=== PATIENT | female | born 1940 | race Caucasian/White ===

== ENCOUNTER 2021-10-18 06:53 | Day surgery (SDC) | payer OTHER ==
[~2021-10-18] VITALS: Ht 154.9 cm; Wt 97.5 kg
[2021-10-18] MEDS ORDERED: CEFAZOLIN SOD 1 GM in D5W 50 ML IV ONE (07:00)
[2021-10-18] MEDS ORDERED: SEVOFLURANE 15 MIN GAS INH ONE (08:01)
[2021-10-18] MEDS ORDERED: LIDOCAINE 1% 10 MG/ML, 20 ML MDV ONE (08:01)
[2021-10-18] MEDS ORDERED: LR 1,000 ML IV.SOLN IV ONE (08:01)
[2021-10-18] MEDS ORDERED: PROPOFOL 200MG/ 20ML VIAL (DIPRIVAN) IV ONE (08:01)
[2021-10-18] MEDS ORDERED: NS IRRIG SOLN 1000 ML IR ONE (08:01)
[2021-10-18] MEDS ORDERED: BUPIVACAINE /PF 0.25% 30 ML VIAL INJ ONE (08:01)
[2021-10-18] MEDS ORDERED: ROCURONIUM BROMIDE 10 MG/ML (ZEMURON) ONE (08:01)
[2021-10-18] MEDS ORDERED: HYDROcodone/ACETAMIN 5-325 MG TAB (NORCO/ VICODIN) PO PRN ×2 (09:30)
[2021-10-18] MEDS ORDERED: D5/0.45 NS 1,000 ML IV SCH (09:30)
[2021-10-18] MEDS ORDERED: KETOROLAC TROMETHAMINE 30 MG VIAL IVP PRN (09:45)
[2021-10-18] MEDS ORDERED: LABETALOL 100 MG/ 20ML VIAL IVP PRN (09:45)
[2021-10-18] MEDS ORDERED: HYDROmorphone 1 MG/ML INJ. CARTRIDGE IVP PRN ×2 (09:45)
[2021-10-18] MEDS ORDERED: ONDANSETRON HCL 4 MG/2 ML VIAL IVP PRN (09:45)
[2021-10-18 11:26] VITALS: BP_SYST 152
== END 2021-10-18 11:05 | disposition home or self-care (01) ==
LOC: SDS 06:53 → SMU 06:54 → SDS 11:05
PROVIDERS: ATTEND Colon & Rectal Surgery
DX: K43.6 Other and unspecified ventral hernia with obstruction, without gangrene (principal); I12.9 Hypertensive chronic kidney disease with stage 1 through stage 4 chronic kidney disease, or unspecified chronic kidney disease; N18.30 Chronic kidney disease, stage 3 unspecified; J44.9 Chronic obstructive pulmonary disease, unspecified; E78.5 Hyperlipidemia, unspecified; E66.01 Morbid (severe) obesity due to excess calories; Z68.41 Body mass index [BMI] 40.0-44.9, adult; Z79.899 Other long term (current) drug therapy; Z20.822 Contact with and (suspected) exposure to COVID-19
CPT/HCPCS: 36415 ×2; 49561; 49568 ×2; 88302; 87426; U0003; J3490; J0690; J2001; J2704; J7060; J7120; C1781 ×2